=== PATIENT | male | born 1995 | race Caucasian/White ===

== ENCOUNTER 2018-06-13 12:38 | Emergency (ER) | payer BC ==
[~2018-06-13] VITALS: Ht 172.7 cm; Wt 65.8 kg
[~2018-06-13 12:38] MED LIST: BACTRIM DS TAB1 EACH PO; CEPHALEXIN 500500 M1 PO; CLEOCIN HCL150 MG PO; CLONAZEPAM 1 MG1 M1 PO; CONCERTA54 M1 PO; DELTASONE20 MG PO; DOXYCYCLINE 10100 M1 PO; EXCEDRIN CAPLE1 EACH PO; FIORICET 50-321 EACH PO; HYDROCODON-ACE1 EA11 PO; HYDROCODON-ACE1 EAC7 PO; HYDROCODONE-AP1 EAC6 PO; IBUPROFEN 800800 M1 PO; KEFLEX500 MG PO; MEDROLDOSEPACK PO; NAPROSYN500 MG PO; NOHOMEMEDICATIONS; NORCO 5-325 TA1 EAC1 PO; NORCO 5-325 TA1 EACH PO; OMEPRAZOLE20 M2 PO; OXYCODONE HCL 55 MG PO; PREDNISONE 10 M10 MG PO; PREDNISONE 20 M20 M1 PO; PREDNISONE 5 MG5 MG PO; TRAMADOL 50 MG50 MG PO; XANAX 0.25 MG0.25 MG PO; XANAX 0.5 MG0.5 MG PO; ZOFRAN ODT4 MG PO
[2018-06-13 13:16] VITALS: BP 142/93
== END 2018-06-13 13:16 | disposition home or self-care (01) ==
LOC: M.ERS 12:38
DX: R22.32 Localized swelling, mass and lump, left upper limb (principal); L72.3 Sebaceous cyst; G43.909 Migraine, unspecified, not intractable, without status migrainosus; F32.9 Major depressive disorder, single episode, unspecified; F90.9 Attention-deficit hyperactivity disorder, unspecified type; M06.9 Rheumatoid arthritis, unspecified; F41.9 Anxiety disorder, unspecified; F17.210 Nicotine dependence, cigarettes, uncomplicated; Z88.1 Allergy status to other antibiotic agents; Z88.6 Allergy status to analgesic agent

== ENCOUNTER 2018-10-07 18:31 | Emergency (ER) | payer BC ==
[~2018-10-07] VITALS: Ht 172.7 cm; Wt 63.5 kg
[2018-10-07] MEDS ORDERED: ZOFRAN ODT4 MG PO (20:20)
[2018-10-07] MEDS ORDERED: ACETAMINOPHEN-1 EAC1 PO (20:20)
[2018-10-07 20:29] VITALS: BP 129/73
== END 2018-10-07 20:30 | disposition home or self-care (01) ==
LOC: M.ERS 18:31
DX: K52.9 Noninfective gastroenteritis and colitis, unspecified (principal); F17.210 Nicotine dependence, cigarettes, uncomplicated; G43.909 Migraine, unspecified, not intractable, without status migrainosus; F32.9 Major depressive disorder, single episode, unspecified; F90.9 Attention-deficit hyperactivity disorder, unspecified type; F41.9 Anxiety disorder, unspecified; M06.9 Rheumatoid arthritis, unspecified; Z88.1 Allergy status to other antibiotic agents; Z88.8 Allergy status to other drugs, medicaments and biological substances; Z88.6 Allergy status to analgesic agent